=== PATIENT | female | born 1945 | race Caucasian/White ===

== ENCOUNTER → 2018-04-15 08:06 | Outpatient (CLI) | payer MEDICARE, SELFPAY ==
[2018-04-15 10:57] LABS: Add Manual Diff / Slide Review NO; Basophils Percent Auto 0.6 % (0-2); Eosinophils Percent Auto 0.9 % (2-4); Hematocrit 40.9 % (36-46); Hemoglobin 13.8 g/dL (12.0-16.0); Lymphocytes Percent Auto 32.4 % (25-40); Mean Corpuscular HGB Conc 33.7 % (30-36); Mean Corpuscular Volume 91.9 fL (80-100); Monocytes Percent Auto 7.5 % (3-14); Neutrophils Absolute Auto 4100 /uL (3000-5900); Neutrophils Percent Auto 58.6 % (50-75); Platelet Count 134 X10^3/uL (150-400); Red Blood Cell Count 4.45 X10^6/uL (4.0-5.2); Red Cell Distribution Width 13.8 % (11.6-14.8)
[2018-04-15 11:26] LABS: Alanine Aminotransferase 32 IU/L (9-52); Albumin 3.8 g/dL (3.5-5.0); Albumin Globulin Ratio 1.4 (1.0-2.8); Alkaline Phosphatase 59 U/L (38-126); Aspartate Aminotransferase 28 IU/L (14-36); Blood Urea Nitrogen 27 mg/dL (7-17); Calcium 9.1 mg/dL (8.4-10.2); Carbon Dioxide 25 mmol/L (22-32); Chloride 107 mmol/L (98-107); Estimated Glomerular Filt Rate 54.2 mL/min (>60); Globulin 2.7 g/dL (1.7-4.1); Glucose 82 mg/dL (80-110); HEMOLYSIS < 15 (0-50); Potassium 4.5 mmol/L (3.4-5.1); Sodium 144 mmol/L (137-145); Total Protein 6.5 g/dL (6.3-8.2)
[2018-04-16 14:44] LABS: Parathyroid Hormone Int 37 pg/mL (14-64)
== END ==
PROVIDERS: Visit Provider Internal Medicine
DX: D69.6 Thrombocytopenia, unspecified (principal); R79.9 Abnormal finding of blood chemistry, unspecified; M81.0 Age-related osteoporosis without current pathological fracture; E03.9 Hypothyroidism, unspecified
CPT/HCPCS: 36415; 80053; 83970; 84443; 85025

== ENCOUNTER → 2018-04-28 14:05 | Outpatient (CLI) | payer MEDICARE, SELFPAY ==
--- NOTE | 2018-04-28 14:07 | DI.US.S_ITS ---
PROCEDURE: US THYROID INDICATIONS: ENLARGED THYROID TECHNIQUE: Real-time scanning was performed of the thyroid gland, with image documentation. COMPARISON: None. FINDINGS: Right: Thyroid lobe measures 6.5 x 2.3 x 2.8 cm, and is diffusely heterogeneous in echotexture. Left: Thyroid lobe measures 6.7 x 2.9 x 2.4 cm, and is diffusely heterogeneous in echotexture. Isthmus: 3.6 mm thick. IMPRESSION: Diffusely heterogeneous thyroid. Dictated by: John COLIN Interpreted: Wai Nickerson MD on 04/28/2018 at 16:07 Approved by: Wai Nickerson M.D. on 04/28/2018 at 17:02
== END ==
PROVIDERS: Family Provider Internal Medicine; PCP Internal Medicine; Visit Provider Internal Medicine
DX: E04.9 Nontoxic goiter, unspecified (principal)
CPT/HCPCS: 76536

== ENCOUNTER → 2018-05-13 09:32 | Outpatient (CLI) | payer MEDICARE, SELFPAY | PROVIDERS: PCP Internal Medicine; Visit Provider Internal Medicine | DX: M81.0 Age-related osteoporosis without current pathological fracture (principal); Z78.0 Asymptomatic menopausal state; Z82.62 Family history of osteoporosis; E07.9 Disorder of thyroid, unspecified | CPT/HCPCS: 77080 ==

== ENCOUNTER → 2018-05-27 12:46 | Outpatient (CLI) | payer MEDICARE, SELFPAY ==
--- NOTE | 2018-05-27 12:53 | DI.RAD.S_ITS ---
PROCEDURE: XR HIP W PEL IF DONE RT 2V INDICATIONS: right hip pain TECHNIQUE: AP pelvis with lateral view(s) of the right hip(s). COMPARISON: None. FINDINGS: Bones: No fractures or dislocations. Pelvic ring appears intact. No suspicious bony lesions. Soft tissues: The visualized bowel gas pattern is normal. No suspicious soft tissue calcifications. IMPRESSION: Only a mild degree of hip joint osteoarthritis could be seen bilaterally. No trauma found. Dictated by: Amador Macedo M.D. on 05/27/2018 at 13:37 Approved by: Amador Macedo M.D. on 05/27/2018 at 13:38
== END ==
PROVIDERS: PCP Internal Medicine; Visit Provider Internal Medicine
DX: M16.0 Bilateral primary osteoarthritis of hip (principal); M25.551 Pain in right hip
CPT/HCPCS: 73502

== ENCOUNTER → 2018-06-02 08:11 | Outpatient (CLI) | payer MEDICARE, SELFPAY ==
--- NOTE | 2018-06-02 08:12 | DI.NM.S_ITS ---
PROCEDURE: NM UPTAKE AND SCAN RADIOPHARMACEUTICAL: 390 ?Ci I-123 sodium iodide by mouth. INDICATIONS: abnormal thyroid ultrasound TECHNIQUE: I-123 sodium iodide was administered orally. Anterior neck images were obtained, and iodine uptake by the thyroid gland calculated using office administration's software. COMPARISON: [facility], , THYROID, 04/28/2018, 14:32. FINDINGS: Morphology: The thyroid gland has normal morphology and uniform activity. No 'cold' or 'hot' thyroid nodules are identified. Uptake: 6 hour thyroid uptake is 11.5%; normal ranges are from 6-18%. 24 hour thyroid uptake is 25.7%; normal ranges are from 10-30%. IMPRESSION: Normal thyroid scan and uptake Dictated by: Abel Quan M.D. on 06/03/2018 at 10:54 Approved by: Abel Quan M.D. on 06/03/2018 at 10:56
== END ==
PROVIDERS: PCP Internal Medicine; Visit Provider Internal Medicine
DX: R93.8 Abnormal findings on diagnostic imaging of other specified body structures (principal)
CPT/HCPCS: 78014; A9516

== ENCOUNTER → 2018-06-25 08:03 | Outpatient (CLI) | payer MEDICARE, SELFPAY ==
[2018-06-25 08:58] LABS: Add Manual Diff / Slide Review NO; Basophils Percent Auto 0.8 % (0-2); Eosinophils Percent Auto 0.9 % (2-4); Hematocrit 42.1 % (36-46); Hemoglobin 14.1 g/dL (12.0-16.0); Lymphocytes Percent Auto 47.8 % (25-40); Mean Corpuscular HGB Conc 33.6 % (30-36); Mean Corpuscular Hemoglobin 31.4 PG (26-34); Mean Corpuscular Volume 93.5 fL (80-100); Monocytes Percent Auto 7.9 % (3-14); Neutrophils Absolute Auto 2800 /uL (3000-5900); Neutrophils Percent Auto 42.6 % (50-75); Platelet Count 168 X10^3/uL (150-400); Red Blood Cell Count 4.51 X10^6/uL (4.0-5.2); Red Cell Distribution Width 14.3 % (11.6-14.8); White Blood Cell Count 6.6 X10^3/uL (4.5-11.0)
[2018-06-25 09:08] LABS: Alanine Aminotransferase 39 IU/L (9-52); Albumin 3.9 g/dL (3.5-5.0); Albumin Globulin Ratio 1.6 (1.0-2.8); Alkaline Phosphatase 51 U/L (38-126); Aspartate Aminotransferase 34 IU/L (14-36); BUN Creatinine Ratio 26.4 (6-22); Bilirubin Total 0.7 mg/dL (0.2-1.3); Blood Urea Nitrogen 29 mg/dL (7-17); Calcium 9.3 mg/dL (8.4-10.2); Carbon Dioxide 31 mmol/L (22-32); Chloride 109 mmol/L (98-107); Estimated Glomerular Filt Rate 48.6 mL/min (>60); Globulin 2.4 g/dL (1.7-4.1); Glucose 59 mg/dL (80-110); HEMOLYSIS < 15 (0-50); Potassium 4.8 mmol/L (3.4-5.1); Sodium 147 mmol/L (137-145); Total Protein 6.3 g/dL (6.3-8.2)
[2018-06-25 09:51] LABS: Free T3, Triiodothyronine Free 3.22 pg/mL (2.77-5.27); Free T4, Direct Thyroxine 1.05 ng/dL (0.78-2.19)
[2018-06-25 10:04] LABS: Thyroid Stimulating Hormone 1.88 uIU/mL (0.47-4.68)
== END ==
PROVIDERS: PCP Internal Medicine; Visit Provider Internal Medicine
DX: E01.0 Iodine-deficiency related diffuse (endemic) goiter (principal); E03.9 Hypothyroidism, unspecified
CPT/HCPCS: 36415; 80053; 84439; 84443; 84481; 85025

== ENCOUNTER → 2018-10-08 12:48 | Outpatient (CLI) | payer MEDICARE, SELFPAY ==
[2018-10-08 14:12] LABS: Free T3, Triiodothyronine Free 3.48 pg/mL (2.77-5.27); Free T4, Direct Thyroxine 1.41 ng/dL (0.78-2.19)
[2018-10-08 14:26] LABS: Thyroid Stimulating Hormone 0.18 uIU/mL (0.47-4.68)
== END ==
PROVIDERS: PCP Internal Medicine; Visit Provider Internal Medicine
DX: E03.9 Hypothyroidism, unspecified (principal); E04.9 Nontoxic goiter, unspecified
CPT/HCPCS: 36415; 84439; 84443; 84481

== ENCOUNTER → 2018-11-27 08:03 | Outpatient (CLI) | payer MEDICARE, SELFPAY ==
[2018-11-27 10:44] LABS: Thyroid Stimulating Hormone 2.49 uIU/mL (0.47-4.68)
== END ==
PROVIDERS: PCP Internal Medicine; Visit Provider Internal Medicine
DX: E01.0 Iodine-deficiency related diffuse (endemic) goiter (principal); E03.9 Hypothyroidism, unspecified
CPT/HCPCS: 36415; 84443

== ENCOUNTER → 2019-05-20 08:18 | Outpatient (CLI) | payer MEDICARE, SELFPAY ==
--- NOTE | 2019-05-20 | DI.MG.S_ITS ---
BILATERAL DIGITAL SCREENING MAMMOGRAM 3D/2D WITH CAD: 05/20/2019 CLINICAL: Routine screening. Family history of breast cancer. Comparison is made to exams dated: 04/18/2018 mammogram, 04/10/2017 mammogram, 04/02/2016 mammogram, 12/15/2009 mammogram, 02/18/2014 mammogram, and 01/13/2013 mammogram - [facility]. The tissue of both breasts is heterogeneously dense. This may lower the sensitivity of mammography. Current study was also evaluated with a Computer Aided Detection (CAD) system. There are mole markers on both breasts. No significant masses, calcifications, or other findings are seen in either breast. There has been no significant interval change. IMPRESSION: NEGATIVE There is no mammographic evidence of malignancy. A 1 year screening mammogram is recommended. This exam was interpreted at Station ID: [id number]. NOTE: For mammograms, a report in lay terms will be sent to the patient. Approximately 15% of breast malignancies will not be visualized mammographically. In the management of a palpable breast mass, a negative mammogram must not discourage biopsy of a clinically suspicious lesion. Electronically Signed By: Corby bobo/clemente:05/21/2019 09:12:12 letter sent: Normal Exam ACR BI-RADS Category 1: Negative 3341F
== END ==
PROVIDERS: PCP Internal Medicine; Visit Provider Internal Medicine
DX: Z12.31 Encounter for screening mammogram for malignant neoplasm of breast (principal); Z80.3 Family history of malignant neoplasm of breast
CPT/HCPCS: 77063; 77067

== ENCOUNTER → 2019-06-22 10:02 | Outpatient (CLI) | payer MEDICARE, SELFPAY ==
--- NOTE | 2019-06-22 | DI.RAD.S_ITS ---
PROCEDURE: XR KNEE RT 3V INDICATIONS: RIGHT KNEE PAIN TECHNIQUE: 3 views of the knee were acquired. COMPARISON: None. FINDINGS: Bones: No fractures or dislocations. No suspicious bony lesions. Soft tissues: No joint effusion. No suspicious soft tissue calcifications. IMPRESSION: Degenerative changes at the knee are moderately severe to severe at the lateral facet of the patellofemoral joint. At the medial compartment there is mild degenerative joint space narrowing. Dictated by: Amador Macedo M.D. on 06/22/2019 at 10:44 Approved by: Amador Macedo M.D. on 06/22/2019 at 10:45
== END ==
PROVIDERS: PCP Internal Medicine; Visit Provider Internal Medicine
DX: M25.561 Pain in right knee (principal)
CPT/HCPCS: 73562

== ENCOUNTER 2019-12-25 12:30 | Day surgery (SDC) | payer MEDICARE, SELFPAY ==
--- NOTE | 2019-12-25 08:19 | PM.HP.1 ---
History of Present Illness History of Present Illness Date Patient Seen: 12/25/19 Chief complaint: [id number] Narrative: 74 year old female comes in today for consideration of a screening colonoscopy. She has had approximately 4 colonoscopies previously. Has a history of colon polyps. Her last colonoscopy in 2013 had 2 polyps. There have been no lower GI symptoms suggesting disease such as change in bowel habits, bleeding, abdominal pain or anemia. There's been no family history of colon cancer or colon polyps. Overall health issues have been stable, including no major cardiac events for at least 6 weeks. PCP: MAGDALENA Oleary Past medical history: Osteoporosis Hypothyroidism Right hip bursitis Degenerative arthritis Past surgical history: Noncontributory Family history: Father: Stroke Mother: Alcoholism Siblings: Osteoporosis Social history: , homemaker. Went to [employer]. Patient History Medical History (Updated 05/19/18 @ 12:39 by MAGDALENA Oleary) Chicken pox (Resolved) Colon polyps (Chronic) Hematuria (Chronic) Hypothyroidism (Chronic) Measles (Resolved) Mumps (Resolved) Osteoporosis (Chronic ~2009) Surgical History (Updated 04/22/18 @ 14:15 by Marilia Jiménez) Skin cancer (Resolved ~2001) Status post tubal ligation (~1977) Family & Social History Social History: household members spouse lives independently Yes caregiver/support person No Tobacco & Substance use: Smoking Status Never smoker Meds Home Medications and Allergies Home Medications Medication Instructions Recorded Confirmed Type B-complex with vitamin C 1 tab PO DAILY 04/23/18 12/25/19 History calcium carbonate 500 mg calcium 1,000 mg PO ONCE tab 04/23/18 12/25/19 History (1,250 mg) tablet cholecalciferol (vitamin D3) 50 2,000 unit PO BID cap 04/23/18 12/25/19 History mcg (2,000 unit) capsule flaxseed oil 1,000 mg capsule 1,000 mg PO DAILY 04/23/18 12/25/19 History magnesium oxide 500 mg capsule 500 mg PO DAILY cap 04/23/18 12/25/19 History levothyroxine 50 mcg tablet 50 mcg PO DAILY #30 tab 07/01/18 12/25/19 Rx alendronate 70 mg tablet 70 mg PO QWEEK #12 tab 08/06/18 12/25/19 Rx Allergies Allergy/AdvReac Type Severity Reaction Status Date / Time codeine [CODEINE] Allergy Mild VOMITING Verified 12/25/19 12:51 Review of Systems Review of Systems ROS: Yes All systems reviewed with the patient and are negative except as otherwise documented Exam Narrative Exam Narrative: GENERAL: Alert and oriented, appearing stated age and in no acute distress. HEENT: Head normocephalic/atraumatic. LUNGS: Clear to ausculation bilaterally, no wheezes, rhonchi or rales. CV: Normal S1 and S2 with regular rate and rhythm, no audible murmurs, rubs or gallops. ABDOMEN: Soft, non-tender, non-distended, no organomegaly. Positive bowel sounds. EXTREMITIES: No clubbing, cyanosis, or edema. NEURO: Cranial nerves II through XII grossly intact, no focal deficits. PSYCH: Alert and oriented x 3. SKIN: No concerning lesions. Assessment & Plan Assessment & Plan narrative: 1. History of colon polyps 2. Screening for colon cancer Plan for colonoscopy. The nature and character of the procedure as well as anticipated results were discussed. The possibility of not completing the procedure was also discussed. Possible complications including aspiration pneumonia, bleeding, perforation and reaction to medications either for sedation or preparation and missed lesions were discussed. Questions were answered and proceeding to the colonoscopy was elected. Informed consent signed. I sincerely appreciate the referral allowing me to participate in this patient's care. Please contact me with any questions or concerns.
--- NOTE | 2019-12-25 08:22 | PM.OP.ENDO ---
Operative Date/Time/Diagnoses Date of procedure: 12/25/19 Time of procedure: 14:13 Pre-op diagnosis: 1. History of colon polyps 2. Screening for colon cancer Post-op diagnosis: other (Normal colonoscopy, sigmoid diverticulosis) Procedure & Clinicians Study performed: Colonoscopy Same procedure as scheduled: Yes Indications: 1. History of colon polyps 2. Screening for colon cancer Surgeon: Shonda Howard Procedure Notes SCOAP/Timeout: 14:14 Procedure in detail: ENDOSCOPIST: Shonda Howard MD Sedation RN: Marcos Irvin RN Sedation start time: 2:15 p.m. Sedation end time: 2:46 p.m. PROCEDURE: Colonoscopy INDICATIONS: 1. History of colon polyps 2. Screening for colon cancer MEDICATION: Levsin 0.125 mg sublingual, incremental doses of Versed and fentanyl until appropriate level sedation achieved. ASA CLASS: 2 CECAL WITHDRAWAL TIME: 17 minutes COMPLICATIONS: None. EXTENT OF PROCEDURE: Cecum. QUALITY OF PREP: Good with portions of liquid stool. PROCEDURE: Prior to insertion of the colonoscope, a digital rectal examination was accomplished with circumferential palpation of the distal rectal mucosa without significant findings being noted. The high-definition colonoscope was passed into the rectum in the usual fashion and advanced over to the cecum without difficulty. The ileocecal valve, appendiceal stoma, and medial wall all could be inspected and no abnormalities were seen. ASCENDING COLON: As the colonoscope was withdrawn, care was taken to expose and inspect the haustral folds and no abnormalities were seen. HEPATIC FLEXURE: Normal no polyps, diverticula or other abnormalities. TRANSVERSE COLON: Normal no polyps, diverticula or other abnormalities. DESCENDING COLON: Normal no polyps, diverticula or other abnormalities. SIGMOID COLON: Minor diverticulosis, otherwise, normal, no polyps or other abnormalities. RECTUM: Normal. J maneuver was produced. There was no significant perianal disease. The J maneuver was broken. The remainder of the rectum was inspected and there was no external hemorrhoid disease. The scope was withdrawn. IMPRESSION: 1. Normal colonoscopy 2. Diverticulosis, sigmoid colon, mild PLAN: 1. Repeat colonoscopy in 5 years secondary to history of colon polyps. The possibility of a missed lesion including a malignancy has been discussed with the patient previously. Potential alarm symptoms have been discussed and should be reported immediately. Specimen(s): none sent Complications: none Post-procedure Recommendations: Colonscopy in 5 years Follow up: as needed Disposition: PACU
[2019-12-25 12:53] VITALS: BMI 23.5
[2019-12-25 12:59] VITALS: BP 121/64; PULSE 69; RESP 16; TEMP 36.2; O2SAT 98
[2019-12-25] MEDS: SODIUM CHLORIDE 0.9% 1,000 ML 200 ML IV ×2 (13:04→14:35)
[2019-12-25] MEDS: HYOSCYAMINE 0.125 MG TABLET PO (13:05)
[2019-12-25] MEDS: fentaNYL 250 MCG/5 ML INJ IV (14:50)
[2019-12-25] MEDS: MIDAZOLAM 5 MG/5 ML VIAL IV (14:50)
[2019-12-25 14:52] VITALS: BP 110/57; PULSE 53; RESP 20; TEMP 36; O2SAT 100
[2019-12-25 14:57] VITALS: BP 113/59; PULSE 51; RESP 13; O2SAT 100
[2019-12-25 15:02] VITALS: BP 107/43; PULSE 52; RESP 12; O2SAT 100
[2019-12-25 15:07] VITALS: BP 114/70; PULSE 53; RESP 13; O2SAT 98
[2019-12-25 15:11] VITALS: BP 121/61; PULSE 57; RESP 16; O2SAT 100
== END 2019-12-25 15:31 | disposition home or self-care (01) ==
PROVIDERS: PCP Internal Medicine; Referring Provider Student in an Organized Health Care Education/Training Program; Visit Provider Student in an Organized Health Care Education/Training Program
PROC: 0DJD8ZZ Inspection of Lower Intestinal Tract, Via Natural or Artificial Opening Endoscopic (ICD-10-PCS; CPT 45378; principal; 2019-12-25 14:00)
DX: Z12.11 Encounter for screening for malignant neoplasm of colon (principal); Z86.010 Personal history of colon polyps; K57.30 Diverticulosis of large intestine without perforation or abscess without bleeding
CPT/HCPCS: G0105; J2250; J3010

== ENCOUNTER → 2020-06-29 13:39 | Outpatient (CLI) | payer MEDICARE, SELFPAY | PROVIDERS: PCP Internal Medicine; Referring Provider Internal Medicine; Visit Provider Internal Medicine | DX: M81.0 Age-related osteoporosis without current pathological fracture (principal); Z78.0 Asymptomatic menopausal state; E07.9 Disorder of thyroid, unspecified; Z82.62 Family history of osteoporosis | CPT/HCPCS: 77080 ==

== ENCOUNTER → 2020-07-11 11:23 | Outpatient (CLI) | payer MEDICARE, SELFPAY ==
--- NOTE | 2020-07-11 11:36 | DI.MG.S_ITS ---
Patient Name: RAGINI RICHARDS date: 1945 Sex: F Attending Physician: Gomez Indications: Date: 07/11/2020 11:29 At the request of: LILIA REGAN Procedure: MM screening mammo BI BILATERAL DIGITAL SCREENING MAMMOGRAM 3D/2D WITH CAD: 07/11/2020 CLINICAL: Routine screening. Family history of breast cancer. Comparison is made to exams dated: 05/20/2019 mammogram - [facility], 04/18/2018 mammogram, and 04/10/2017 mammogram - [facility]. The tissue of both breasts is heterogeneously dense. This may lower the sensitivity of mammography. Current study was also evaluated with a Computer Aided Detection (CAD) system. There are mole markers on both breasts. No significant masses, calcifications, or other findings are seen in either breast. There has been no significant interval change. IMPRESSION: NEGATIVE There is no mammographic evidence of malignancy. A 1 year screening mammogram is recommended. This exam was interpreted at Station ID: [id number]. NOTE: For mammograms, a report in lay terms will be sent to the patient. Approximately 15% of breast malignancies will not be visualized mammographically. In the management of a palpable breast mass, a negative mammogram must not discourage biopsy of a clinically suspicious lesion. Electronically Signed By: Margarita patricia/clemente:07/11/2020 15:06:01 letter sent: Normal Exam ACR BI-RADS Category 1: Negative 3341F
== END ==
PROVIDERS: PCP Internal Medicine; Referring Provider Internal Medicine; Visit Provider Internal Medicine
DX: Z12.31 Encounter for screening mammogram for malignant neoplasm of breast (principal); Z80.3 Family history of malignant neoplasm of breast
CPT/HCPCS: 77063; 77067

== ENCOUNTER → 2021-07-15 12:26 | Outpatient (CLI) | payer MEDICARE, SELFPAY ==
--- NOTE | 2021-07-15 | DI.MG.S_ITS ---
BILATERAL DIGITAL SCREENING MAMMOGRAM 3D/2D WITH CAD: 07/15/2021 CLINICAL: Routine screening. Family history of breast cancer. Comparison is made to exams dated: 07/11/2020 mammogram, 05/20/2019 mammogram - [facility], and 04/18/2018 mammogram - [facility]. The tissue of both breasts is heterogeneously dense. This may lower the sensitivity of mammography. Current study was also evaluated with a Computer Aided Detection (CAD) system. There are mole markers on both breasts. No significant masses, calcifications, or other findings are seen in either breast. There has been no significant interval change. IMPRESSION: NEGATIVE There is no mammographic evidence of malignancy. A 1 year screening mammogram is recommended. This exam was interpreted at Station ID: [id number]. NOTE: For mammograms, a report in lay terms will be sent to the patient. Approximately 15% of breast malignancies will not be visualized mammographically. In the management of a palpable breast mass, a negative mammogram must not discourage biopsy of a clinically suspicious lesion. Electronically Signed By: Zackary Connolly acr/penrad:07/17/2021 08:04:53 letter sent: Normal Exam ACR BI-RADS Category 1: Negative 3341F
== END ==
PROVIDERS: PCP Internal Medicine; Referring Provider Internal Medicine; Visit Provider Internal Medicine
DX: Z12.31 Encounter for screening mammogram for malignant neoplasm of breast (principal)
CPT/HCPCS: 77063; 77067

== ENCOUNTER → 2022-07-17 08:18 | Outpatient (CLI) | payer MEDICARE, SELFPAY ==
--- NOTE | 2022-07-17 | DI.MG.S_ITS ---
BILATERAL DIGITAL SCREENING MAMMOGRAM 3D/2D WITH CAD: 07/17/2022 CLINICAL: Routine screening. Family history of breast cancer. Comparison is made to exams dated: 07/15/2021 mammogram, 07/11/2020 mammogram, and 05/20/2019 mammogram - . Both breasts are heterogeneously dense, which may obscure small masses (category c / 51-75% glandular tissue). Current study was also evaluated with a Computer Aided Detection (CAD) system. There are mole markers on both breasts. No significant masses, calcifications, or other findings are seen in either breast. There has been no significant interval change. IMPRESSION: NEGATIVE There is no mammographic evidence of malignancy. A 1 year screening mammogram is recommended. Based on the Tyrer Cuzick model (a risk assessment model) the patient's lifetime risk is 9.1% and her 10 year risk is 0.0%. According to the ACR, ACS, and NCCN guidelines, an annual breast MRI exam along with mammogram is recommended if the patient's lifetime risk is 20% or greater. This exam was interpreted at Station ID: [id number]. NOTE: For mammograms, a report in lay terms will be sent to the patient. Approximately 15% of breast malignancies will not be visualized mammographically. In the management of a palpable breast mass, a negative mammogram must not discourage biopsy of a clinically suspicious lesion. Electronically Signed By: Heron andrade/clemente:07/17/2022 17:53:20 letter sent: Normal Exam ACR BI-RADS Category 1: Negative 3341F
== END ==
PROVIDERS: PCP Internal Medicine; Referring Provider Internal Medicine; Visit Provider Internal Medicine
DX: Z12.31 Encounter for screening mammogram for malignant neoplasm of breast (principal); Z80.3 Family history of malignant neoplasm of breast
CPT/HCPCS: 77063; 77067

== ENCOUNTER → 2022-07-30 09:41 | Outpatient (CLI) | payer MEDICARE, SELFPAY | PROVIDERS: PCP Internal Medicine; Referring Provider Internal Medicine; Visit Provider Internal Medicine | DX: Z78.0 Asymptomatic menopausal state (principal); Z13.820 Encounter for screening for osteoporosis; M81.0 Age-related osteoporosis without current pathological fracture | CPT/HCPCS: 77080 ==

== ENCOUNTER → 2023-07-23 09:22 | Outpatient (CLI) | payer MEDICARE, SELFPAY ==
--- NOTE | 2023-07-23 | DI.MG.S_ITS ---
BILATERAL DIGITAL DIAGNOSTIC MAMMOGRAM 3D/2D: 07/23/2023 CLINICAL: Breast skin changes. Comparison is made to exams dated: 07/17/2022 mammogram, 07/11/2020 mammogram, and 07/15/2021 mammogram - [facility]. There are scattered areas of fibroglandular density in both breasts (category b / 25%-50% glandular tissue). No significant masses, calcifications, or other findings are seen in either breast. Specifically, no finding to correspond to the patient's biopsied skin lesion. IMPRESSION: NEGATIVE There is no abnormality seen in the right breast to correspond with the skin lesion at 1 o'clock, however, clinical followup is recommended for ongoing symptoms. There is no mammographic evidence of malignancy. Return to annual mammogram screening schedule is recommended. Findings and recommendations were conveyed to the patient at time of exam. Based on the Tyrer Cuzick model (a risk assessment model) the patient's lifetime risk is 5.3% and her 10 year risk is 0.0%. According to the ACR, ACS, and NCCN guidelines, an annual breast MRI exam along with mammogram is recommended if the patient's lifetime risk is 20% or greater. This exam was interpreted at Station ID: [id number]. NOTE: For mammograms, a report in lay terms will be sent to the patient. Approximately 15% of breast malignancies will not be visualized mammographically. In the management of a palpable breast mass, a negative mammogram must not discourage biopsy of a clinically suspicious lesion. Electronically Signed By: Rachell andrews/:07/23/2023 10:08:33 letter sent: Normal Exam ACR BI-RADS Category 1: Negative 3341F
== END ==
PROVIDERS: PCP Internal Medicine; Referring Provider Internal Medicine; Visit Provider Internal Medicine
DX: N64.59 Other signs and symptoms in breast (principal)
CPT/HCPCS: 77066; G0279

== ENCOUNTER → 2024-02-07 10:40 | Outpatient (CLI) | payer MEDICARE, SELFPAY ==
--- NOTE | 2024-02-07 10:43 | DI.RAD.S_ITS ---
PROCEDURE: XR KNEE RT 3V INDICATIONS: Pain in right knee TECHNIQUE: 3 views of the knee were acquired. COMPARISON: [facility], , XR KNEE RT 3V, 06/22/2019, 10:07. FINDINGS: Bones: No fractures or dislocations. No suspicious bony lesions. Tricompartmental joint space narrowing with associated osteophytosis. Soft tissues: No joint effusion. No suspicious soft tissue calcifications. Chondrocalcinosis. 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 Chondrocalcinosis, which can be seen in the setting of CPPD, aging, and parathyroid disorders. Dictated by: Austin Murillo M.D. on 02/07/2024 at 12:50 Approved by: Austin Murillo M.D. on 02/07/2024 at 12:51
== END ==
LOC: RAD 10:41
PROVIDERS: PCP Internal Medicine; Referring Provider Internal Medicine; Visit Provider Internal Medicine
DX: M17.11 Unilateral primary osteoarthritis, right knee (principal); M11.261 Other chondrocalcinosis, right knee; M25.561 Pain in right knee; M25.461 Effusion, right knee
CPT/HCPCS: 73562

== ENCOUNTER → 2024-07-30 07:42 | Outpatient (CLI) | payer MEDICARE, SELFPAY ==
--- NOTE | 2024-07-30 07:43 | DI.MG.S_ITS ---
BILATERAL DIGITAL SCREENING MAMMOGRAM 3D/2D WITH CAD: 07/30/2024 CLINICAL: Routine screening. Family history of breast cancer. Comparison is made to exams dated: 07/23/2023 mammogram, 07/17/2022 mammogram, and 07/15/2021 mammogram - [facility]. The breasts are heterogeneously dense, which may obscure small masses (category c / 51-75% glandular tissue). Current study was also evaluated with a Computer Aided Detection (CAD) system. No significant masses, calcifications, or other findings are seen in either breast. There has been no significant interval change. IMPRESSION: NEGATIVE There is no mammographic evidence of malignancy. A 1 year screening mammogram is recommended. Based on the Tyrer Cuzick model (a risk assessment model) the patient's lifetime risk is 6.8% and her 10 year risk is 0.0%. According to the ACR, ACS, and NCCN guidelines, an annual breast MRI exam along with mammogram is recommended if the patient's lifetime risk is 20% or greater. This exam was interpreted at Station ID: [id number]. NOTE: For mammograms, a report in lay terms will be sent to the patient. Approximately 15% of breast malignancies will not be visualized mammographically. In the management of a palpable breast mass, a negative mammogram must not discourage biopsy of a clinically suspicious lesion. Electronically Signed By: Rachell andrews/clemente:07/30/2024 12:50:24 copy to: Elaine Denton letter sent: Normal Exam ACR BI-RADS Category 1: Negative
== END ==
PROVIDERS: PCP Internal Medicine; Referring Provider Internal Medicine; Visit Provider Internal Medicine
DX: Z12.31 Encounter for screening mammogram for malignant neoplasm of breast (principal); Z80.3 Family history of malignant neoplasm of breast; R92.333 Mammographic heterogeneous density, bilateral breasts
CPT/HCPCS: 77063; 77067

== ENCOUNTER → 2024-08-10 07:33 | Outpatient (CLI) | payer MEDICARE, SELFPAY ==
--- NOTE | 2024-08-10 07:34 | DI.US.S_ITS ---
PROCEDURE: US THYROID INDICATIONS: HYPOTHYROIDISM/HYPERPARATHYROIDISM/GOITER TECHNIQUE: Real-time scanning was performed of the thyroid gland, with image documentation. COMPARISON: None. FINDINGS: Thyroid: Right lobe measures 6.4 x 1.8 x 3.3 cm. Left lobe measures 7.1 x 3.3 x 2 point cm. Isthmus is 4 mm thick. Echotexture is diffusely heterogeneous without discrete nodule.. IMPRESSION: Thyroid demonstrates diffuse heterogeneous echotexture without discrete nodule or normal-appearing thyroid tissue most likely related to diffuse multinodular goiter. Dictated by: Raymundo Birmingham M.D. on 08/10/2024 at 9:39 Approved by: Raymundo Birmingham M.D. on 08/10/2024 at 9:41
== END ==
LOC: US 07:34
PROVIDERS: PCP Internal Medicine; Referring Provider Internal Medicine; Visit Provider Internal Medicine
DX: E03.9 Hypothyroidism, unspecified (principal); N25.81 Secondary hyperparathyroidism of renal origin; E04.9 Nontoxic goiter, unspecified
CPT/HCPCS: 76536

== ENCOUNTER → 2024-10-05 11:34 | Outpatient (CLI) | payer MEDICARE, SELFPAY ==
--- NOTE | 2024-10-05 11:36 | DI.RAD.S_ITS ---
PROCEDURE: XR DEXA AXIAL SKELETON INDICATIONS: age related orseoporosis COMPARISON: [facility], CR, XR DEXA AXIAL SKELETON, 07/30/2022, 10:04. FINDINGS: Lumbar Spine: Bone mineral density 0.747 g/cm2, T score -2.7. There is interval 0.1% decrease in total lumbar spine bone mineral density. Left Hip: Bone mineral density 0.684 g/cm2, T score -2.1. There is interval 3.2% decrease in total left hip bone mineral density. Left Femoral Neck: Bone mineral density 0.536 g/cm2, T score -2.8. There is interval 2.1% decrease in left femoral neck bone mineral density. Right Hip: Bone mineral density 0.633 g/cm2, T score -2.5. There is interval 5.4% decrease in right total hip bone mineral density. Right Femoral Neck: Bone mineral density 0.490 g/cm2, T score -3.2. There is interval 6.5% decrease in right femoral neck bone mineral density. Fracture Risk Calculation (when applicable): 10-year fracture risk of a major osteoporotic fracture 26 percent and of a hip fracture 11 percent. (T score greater or equal to -1.0 to: NORMAL) (T score from -1.1 to -2.4: OSTEOPENIA) (T score less than or equal to -2.5: OSTEOPOROSIS) IMPRESSION: Osteoporosis. Follow-up guidelines as follows: Osteoporosis: Consider a repeat DEXA and Vertebral Fracture Assessment (VFA) exam in 2 years or sooner if medically necessary, to reassess this patient's status. Osteopenia: Consider a repeat DEXA in 2-3 years to reassess this patient's status, or if there is a new clinical indication. Normal: Consider a repeat DEXA in 5 years or sooner, or if there is a new clinical indication. All treatment decisions require clinical judgment and consideration of individual patient factors, including patient preferences, comorbidities, previous drug use, risk factors not captured in the FRAX model (e.g., frailty, falls, vitamin D deficiency, increased bone turnover, interval significant decline in bone density ) and possible under- or over-estimation of fracture risk by FRAX. In addition, the NOF Guide recommends that FDA-approved medical therapies be considered in postmenopausal women and men age >= 50 years with a: * Hip or vertebral (clinical or morphometric) fracture * T-score of <=-2.5 at the spine or hip * Ten-year fracture probability by FRAX of >= 3% for hip fracture or >=20% for major osteoporotic fracture. People with diagnosed cases of osteoporosis or at high risk for fracture should have regular bone mineral density tests. For patients eligible for Medicare, routine testing is allowed once every 2 years. The testing frequency can be increased to one year for patients who have rapidly progressing disease, those who are receiving or discontinuing medical therapy to restore bone mass, or have additional risk factors. Dictated by: Carlos Rojas M.D. on 10/05/2024 at 18:47 Approved by: Carlos Rojas M.D. on 10/05/2024 at 18:49
== END ==
PROVIDERS: PCP Internal Medicine; Referring Provider Internal Medicine; Visit Provider Internal Medicine
DX: M81.0 Age-related osteoporosis without current pathological fracture (principal)
CPT/HCPCS: 77080

== ENCOUNTER → 2024-10-12 11:37 | Outpatient (CLI) | payer MEDICARE, SELFPAY ==
--- NOTE | 2024-10-12 11:40 | DI.RAD.S_ITS ---
PROCEDURE: XR CERVICAL SPINE 4V OR 5V INDICATIONS: NECK PAIN TECHNIQUE: 5 views of the cervical spine acquired. COMPARISON: None. FINDINGS: Bones: No fractures or dislocations to the T1 level. Moderately decreased disc height at C5-C6. Oblique images demonstrate mild osseous neural foraminal stenosis at C3-C4 and C4-C5. The left neural foramen are poorly visualized. Soft tissues: No prevertebral soft tissue swelling. IMPRESSION: 1. Moderate degenerative disc disease at C5-C6. 2. Left neural foramen are poorly visualized. Consider cross-sectional imaging of the cervical spine if there is a high index of suspicion for neural foraminal stenosis. Dictated by: Isaac Barnard M.D. on 10/12/2024 at 15:07 Approved by: Isaac Barnard M.D. on 10/12/2024 at 15:11
== END ==
LOC: RAD 11:39
PROVIDERS: PCP Internal Medicine; Referring Provider Internal Medicine; Visit Provider Internal Medicine
DX: M50.322 Other cervical disc degeneration at C5-C6 level (principal); M48.02 Spinal stenosis, cervical region; G89.29 Other chronic pain
CPT/HCPCS: 72050

== ENCOUNTER 2025-07-07 12:56 | Emergency (ER) | payer MEDICARE, SELFPAY ==
[2025-07-07] VITALS (7 sets, daily range): BP systolic 150–172; BP diastolic 65–79; PULSE 56–74; RESP 16–20; TEMP 36.6; O2SAT 98–100; BMI 24.0
--- NOTE | 2025-07-07 13:16 | DI.RAD.S_ITS ---
PROCEDURE: XR CHEST 1V INDICATIONS: Chest Pain TECHNIQUE: One view of the chest was acquired. COMPARISON: None. FINDINGS: Surgical changes and devices: None. Lungs and pleura: Lungs are clear. No pleural effusions or pneumothorax. Mediastinum: Mediastinal contours appear normal. Heart size is normal. Bones and chest wall: No suspicious bony lesions. Overlying soft tissues appear unremarkable. IMPRESSION: No acute cardiopulmonary pathology. Dictated by: Carlos Rojas M.D. on 07/07/2025 at 13:48 Approved by: Carlos Rojas M.D. on 07/07/2025 at 13:49
--- NOTE | 2025-07-07 13:23 | EKG_ITS ---
[place] [id number] [place] [id number] Test Date: 2025-07-07 Pat Name: Jacqueline Rivera Department: [facility] Room: Gender: Female [employer]: [employer] : 1945 Requested By: Order Number: [id number] Reading MD: Hernandez Batres MD Measurements Intervals [place] Rate: 57 P: 58 AL: 172 QRS: -13 QRSD: 80 T: 33 QT: 436 QTc: 424 Interpretive Statements Sinus bradycardia Minimal voltage criteria for LVH, may be normal variant ( R in aVL ) Electronically Signed On 07-12-2025 7:42:04 PDT by Hernandez Batres MD
[2025-07-07 13:24] LABS: Add Manual Diff / Slide Review NO; Hematocrit 41.3 % (36-46); Hemoglobin 13.8 g/dL (12.0-16.0); Lymphocytes Absolute Auto 3300 /uL (1100-4500); Mean Corpuscular HGB Conc 33.3 % (30-36); Mean Corpuscular Hemoglobin 31.3 PG (26-34); Mean Corpuscular Volume 94.0 fL (80-100); Platelet Count 145 X10^3/uL (150-400)
[2025-07-07 13:34] LABS: INR 1.0 (0.9-1.3); Prothrombin Time 10.8 SECONDS (9.4-12.5)
[2025-07-07 13:36] LABS: PTT Partial Thromboplastin Tim 28 SECONDS (25.1-36.5)
[2025-07-07 13:42] LABS: Alanine Aminotransferase 18 IU/L (<35); Albumin 4.2 g/dL (3.5-5.0); Albumin Globulin Ratio 1.6 (1.0-2.8); Alkaline Phosphatase 58 U/L (38-126); Blood Urea Nitrogen 24 mg/dL (7-17); Calcium 8.9 mg/dL (8.4-10.2); Carbon Dioxide 21 mmol/L (22-32); Chloride 110 mmol/L (98-107); Creatine Kinase 110 U/L (30-135); Estimated Glomerular Filt Rate 56 mL/min (>60); Globulin 2.6 g/dL (1.7-4.1); Glucose 95 mg/dL (70-99); HEMOLYSIS < 15 (0-50); Lipase 119 U/L (23-300); Magnesium 1.7 mg/dL (1.6-2.3); Potassium 3.9 mmol/L (3.4-5.1); Sodium 140 mmol/L (137-145); Total Protein 6.8 g/dL (6.3-8.2)
[2025-07-07 13:54] LABS: NT-proBNP (BNP-Adult 18+) 118 pg/mL (<450); Troponin I < 0.012 ng/mL (0.01-0.034)
--- NOTE | 2025-07-07 20:06 | ED.GENADULT ---
HPI - General Adult General Chief complaint: Dizziness Stated complaint: light headed , dizzy Time Seen by Provider: 07/07/25 19:45 Source: patient Mode of arrival: Ambulatory History of Present Illness HPI narrative: 79-year-old female with no known history of coronary artery disease or previous strokes, was working outside and felt dizziness lightheadedness, as she has had happened in the past. No associated palpitations or heart racing sensation, no associated focal weakness to face arm or leg. No focal numbness to face arm or leg. No associated syncope or presyncopal symptoms. No associated shortness of breath or diaphoresis. She quickly recovered, currently has no symptoms, no recurrence of symptoms. Patient here for further evaluation with family. Related Data Home Medications ?Medication ?Instructions ?Recorded ?Confirmed B-complex with vitamin C (Super B 1 tab PO DAILY 04/23/18 12/25/19 Complex-Vitamin C tablet) calcium carbonate (Calcium 500) 1,000 mg PO ONCE 04/23/18 12/25/19 cholecalciferol (vitamin D3) 50 2,000 unit PO BID 04/23/18 12/25/19 mcg (2,000 unit) capsule flaxseed oil 1,000 mg capsule 1,000 mg PO DAILY 04/23/18 12/25/19 magnesium oxide 500 mg capsule 500 mg PO DAILY 04/23/18 12/25/19 Previous Rx's ?Medication ?Instructions ?Recorded levothyroxine 50 mcg tablet 50 mcg PO DAILY #30 tabs 07/01/18 alendronate 70 mg tablet 70 mg PO QWEEK #12 tabs 08/06/18 Allergies Allergy/AdvReac Type Severity Reaction Status Date / Time codeine (CODEINE) Allergy Mild VOMITING Verified 07/07/25 13:14 Patient History Medical History (Updated 07/07/25 @ 21:38 by Jose Fierro MD) Hematuria Colon polyps Osteoporosis (~2009) Mumps Measles Chicken pox Hypothyroidism Surgical History (Updated 04/22/18 @ 14:15 by Marilia Jiménez) Skin cancer (~2001) Status post tubal ligation (~1977) Family History Father Stroke Hypertension High cholesterol Grandmother Stroke Grandfather Cancer Grandmother Stroke Heart disease Sister Age: 79 Osteoporosis Sister Age: 78 Osteoporosis Sister Age: 77 Breast CA Osteoporosis Mother No problems noted. Social History (System 04/03/18 @ 11:02 by Sahne Knox) marital status: household members: spouse lives independently: Yes caregiver/support person: No housing: house Smoking Status: Never smoker alcohol intake: current substance use type: does not use Smoking Status: Never smoker alcohol intake frequency: 0-2 drinks per day Exam Narrative Exam Narrative: GENERAL: Well-developed patient, in mild distress. HEAD: Atraumatic. Normocephalic. EYES: Pupils equal round and reactive. Extraocular motions intact. No scleral icterus. No injection or drainage. ENT: Nose without bleeding, purulent drainage. Throat without erythema, tonsillar hypertrophy or exudate. Airway patent. NECK: Trachea midline. Non tender CARDIOVASCULAR: Regular rate and rhythm without murmurs, gallops, or rubs. RESPIRATORY: Clear to auscultation. Breath sounds equal bilaterally. No wheezes, rales, or rhonchi. GASTROINTESTINAL: Abdomen soft, non-tender, nondistended. EXTREMITIES: No edema or joint tenderness. BACK: Nontender without deformity or crepitance. No flank tenderness. NEURO: AOx3. Motor functions grossly nonfocal. SKIN: No rash or erythema of visible areas Initial Vital Signs Initial Vital Signs: Vital Signs Temperature 98 F 07/07/25 13:14 Pulse Rate 66 07/07/25 13:14 Respiratory Rate 17 07/07/25 13:14 Blood Pressure 162/72 H 07/07/25 13:14 Pulse Oximetry 100 07/07/25 13:14 Oxygen Delivery Method Room Air 07/07/25 13:14 Course Orders Ordered: ED Orders 07/07/25 20:30 Troponin I Stat Vital Signs Vital signs: Vital Signs - 8 hr 07/07/25 21:41 07/07/25 21:41 Pulse Rate 56 L Respiratory Rate 18 Blood Pressure 150/69 H Pulse Oximetry 98 Oxygen Delivery Method Room Air Medical Decision Making Lab Data Lab results reviewed: Yes I reviewed the patient's lab results. Lab results narrative: White blood cell count 7000, hemoglobin 13.8, platelets adequate. Glucose 95. BUN 24 with creatinine 1.01 normal, serum CO2 21 slight decreased, electrolytes unremarkable. Liver functions and lipase normal. Troponin negative/unmeasurable. BNP normal. 07/07/25 13:15 07/07/25 13:15 Labs: Lab Results 07/07/25 07/07/25 Range/Units 13:15 20:30 WBC 7.0 (4.5-11.0) X10^3/uL RBC 4.40 (4.0-5.2) X10^6/uL Hgb 13.8 (12.0-16.0) g/dL Hct 41.3 (36-46) % MCV 94.0 (80-100) fL MCH 31.3 (26-34) PG MCHC 33.3 (30-36) % RDW 13.7 (11.6-14.8) % Plt Count 145 L (150-400) X10^3/uL Neut % (Auto) 44.3 L (50-75) % Lymph % (Auto) 46.9 H (25-40) % [place] % (Auto) 7.2 (3-14) % Eos % (Auto) 1.0 L (2-4) % Baso % (Auto) 0.6 (0-2) % Neut # (Auto) 3100 (1307-0653) /uL Lymph # (Auto) 3300 (0106-0643) /uL [place] # (Auto) 500 (0-900) /uL Eos # (Auto) 100 (0-450) /uL Baso # (Auto) 0 (0-100) /uL PT 10.8 (9.4-12.5) SECONDS INR 1.0 (0.9-1.3) APTT 28 (25.1-36.5) SECONDS Sodium 140 (137-145) mmol/L Potassium 3.9 (3.4-5.1) mmol/L Chloride 110 H (98-107) mmol/L Carbon Dioxide 21 L (22-32) mmol/L BUN 24 H (7-17) mg/dL Creatinine 1.01 (0.52-1.04) mg/dL Estimated GFR 56 L (>60) mL/min BUN/Creatinine Ratio 23.8 H (6-22) Glucose 95 (70-99) mg/dL Calcium 8.9 (8.4-10.2) mg/dL Magnesium 1.7 (1.6-2.3) mg/dL Total Bilirubin 0.9 (0.2-1.3) mg/dL AST 28 (14-36) IU/L ALT 18 (<35) IU/L Alkaline Phosphatase 58 (38-126) U/L Total Creatine Kinase 110 (30-135) U/L Troponin I < 0.012 < 0.012 (0.01-0.034) ng/mL NT-Pro-B Natriuret Pep 118 (<450) pg/mL Total Protein 6.8 (6.3-8.2) g/dL Albumin 4.2 (3.5-5.0) g/dL Globulin 2.6 (1.7-4.1) g/dL Albumin/Globulin Ratio 1.6 (1.0-2.8) Lipase 119 (23-300) U/L ECG Data Attestation: I personally reviewed and interpreted this ECG as follows: Interpretation: 1323, sinus bradycardia with rate of 57, no obvious ST segment elevation or depression changes. NH 172, QRS 80, QTC 424. MDM Narrative Medical decision making narrative: 79-year-old female had episode of dizziness and lightheadedness while working outside, that has happened in the past, seems recovered without specific treatment. Screening labs pending. EKG and chest x-ray ordered from triage. No advanced neuro imaging done at this time, declines when offered. DDx consider ACS, bradycardia, tachycardia, TIA, stroke, cerebrovascular disease, other. Initial lab data: White blood cell count 7000, hemoglobin 13.8, platelets adequate. Glucose 95. BUN 24 with creatinine 1.01 normal, serum CO2 21 slight decreased, electrolytes unremarkable. Liver functions and lipase normal. Troponin negative/unmeasurable. BNP normal. 1930, Interval repeat troponin pending. Patient declined CT head and CTA head and neck vessels when offered. Interval repeat troponin also negative/unmeasurable. Patient would like to go home. Sinus bradycardia noted on initial screening EKG. It is possible to have had transient worsening of bradycardia causing the dizziness, consider cardiac ambulatory monitoring as an outpatient. Patient declines further workup at this time. Discharged home with family. Return precautions discussed. Discharge Plan Departure Patient Disposition: Home Clinical Impression: Dizziness, Sinus bradycardia Activity Restrictions/Additional Instructions: Dizziness lightheadedness of unclear etiology. Sinus bradycardia noted on cardiac EKG study. It is possible you might have had a more significant bradycardia causing the dizziness event. Consider ambulatory outpatient cardiac monitoring, that can be ordered by your regular provider. Blood testing not suggestive of heart attack at this time. We did discuss additional testing that might include CT head imaging, CT angiogram of the head and neck vessels, declined for now. Further workup as an outpatient for now per your request. Recheck next few days with your regular doctor to pursue outpatient further workup above. Return to this/nearest emergency department for any change worsening symptoms or any concerns prior. Prescriptions: No Action alendronate 70 mg tablet 70 mg PO QWEEK Qty: 12 3RF flaxseed oil 1,000 mg capsule 1,000 mg PO DAILY calcium carbonate [Calcium 500] 500 mg calcium (1,250 mg) tablet 1,000 mg PO ONCE B-complex with vitamin C [Super B Complex-Vitamin C] tablet 1 tab PO DAILY magnesium oxide 500 mg capsule 500 mg PO DAILY cholecalciferol (vitamin D3) 2,000 unit capsule 2,000 unit PO BID levothyroxine 50 mcg tablet 50 mcg PO DAILY Qty: 30 3RF Referrals: Amna Dyer ARNP [Primary Care Provider, Family Practice] Stand Alone Forms: Patient Portal/API
[2025-07-07 21:07] LABS: Troponin I < 0.012 ng/mL (0.01-0.034)
== END 2025-07-07 21:50 | disposition home or self-care (01) ==
PROVIDERS: Emergency Medicine; Emergency Provider Emergency Medicine; PCP Internal Medicine
DX: R00.1 Bradycardia, unspecified (principal); R42 Dizziness and giddiness
CPT/HCPCS: 36415; 71045; 80053; 82550; 83690; 83735; 83880; 84484; 85025; 85610; 85730; 93005; 99283; 99284

== ENCOUNTER → 2025-07-19 11:11 | Outpatient (CLI) | payer MEDICARE, SELFPAY ==
--- NOTE | 2025-07-19 11:16 | DI.RAD.S_ITS ---
PROCEDURE: XR DEXA AXIAL SKELETON INDICATIONS: hx of abnormal dexa x2 COMPARISON: [facility], , XR DEXA AXIAL SKELETON, 10/05/2024, 12:06. FINDINGS: Lumbar Spine: Bone mineral density 0.769 (previously 0.747) g/cm2, T score -2.5 (previously -2.7). Left Femoral Neck: Bone mineral density 0.535 (previously 0.536) g/cm2, T score -2.8 (previously -2.8). Left Hip: Bone mineral density 0.679 (previously 0.684) g/cm2, T score -2.2 (previously -2.1). Fracture Risk Calculation (when applicable): 10-year fracture risk of a major osteoporotic fracture 21 percent and of a hip fracture 8.3 percent. (T score greater or equal to -1.0 to: NORMAL) (T score from -1.1 to -2.4: OSTEOPENIA) (T score less than or equal to -2.5: OSTEOPOROSIS) IMPRESSION: Osteoporosis--- recommend repeat DEXA in 2 years or less for reassessment of response to treatment. Follow-up guidelines as follows: Osteoporosis: Consider a repeat DEXA and Vertebral Fracture Assessment (VFA) exam in 2 years or sooner if medically necessary, to reassess this patient's status. Osteopenia: Consider a repeat DEXA in 2-3 years to reassess this patient's status, or if there is a new clinical indication. Normal: Consider a repeat DEXA in 5 years or sooner, or if there is a new clinical indication. All treatment decisions require clinical judgment and consideration of individual patient factors, including patient preferences, comorbidities, previous drug use, risk factors not captured in the FRAX model (e.g., frailty, falls, vitamin D deficiency, increased bone turnover, interval significant decline in bone density ) and possible under- or over-estimation of fracture risk by FRAX. In addition, the NOF Guide recommends that FDA-approved medical therapies be considered in postmenopausal women and men age >= 50 years with a: * Hip or vertebral (clinical or morphometric) fracture * T-score of <=-2.5 at the spine or hip * Ten-year fracture probability by FRAX of >= 3% for hip fracture or >=20% for major osteoporotic fracture. Dictated by: Shan Jarvis M.D. on 07/19/2025 at 20:47 Approved by: Shan Jarvis M.D. on 07/19/2025 at 20:50
== END ==
LOC: RAD 11:14
PROVIDERS: PCP Family Medicine; Referring Provider Family Medicine; Visit Provider Family Medicine
DX: M81.0 Age-related osteoporosis without current pathological fracture (principal); Z78.0 Asymptomatic menopausal state
CPT/HCPCS: 77080

== ENCOUNTER → 2025-07-22 07:47 | Outpatient (CLI) | payer MEDICARE, SELFPAY ==
[2025-07-22 09:11] LABS: Cholesterol 158 mg/dL (140-199); HDL Cholesterol 64 mg/dL (40-60); Triglycerides 110 mg/dL (35-150)
== END ==
PROVIDERS: PCP Family Medicine; Referring Provider Family Medicine; Visit Provider Family Medicine
DX: Z13.220 Encounter for screening for lipoid disorders (principal)
CPT/HCPCS: 36415; 80061